=== PATIENT | female | born 1940 | race Caucasian/White ===

== ENCOUNTER 2023-01-30 18:24 | Inpatient (IN) | payer OTHER ==
[2023-01-30] MEDS ORDERED: ACETAMINOPHEN 1000 MG/100 ML BAG IVPB ONE (20:03)
[2023-01-30] MEDS ORDERED: ACETAMINOPHEN INJECTION 100 ML IVPB ONE (20:15)
[2023-01-30 20:20] LABS: BASO % 0.6 % (0-2.0); EOS % 2.1 % (0-4.5); HEMATOCRIT 35.4 % (32.4-45.2); HEMOGLOBIN 11.6 GM/dL (10.7-15.3); LYMPH % 23.2 % (8-40); MCH 29.5 pg (25.7-33.7); MCHC 32.8 g/dl (32.0-36.0); MEAN PLT VOLUME 7.9 fl (7.5-11.1); MONO % 6.1 % (3.8-10.2); PLATELET COUNT 161 10^3/uL (134-434); RBC 3.94 M/mm3 (3.60-5.2); RDW 15.1 % (11.6-15.6); WHITE BLOOD COUNT 7.8 K/mm3 (4.0-10.0)
[2023-01-30 20:42] LABS: CHLORIDE 93 mmol/L (98-107); POTASSIUM 5.3 mmol/L (3.5-5.1); SODIUM 130 mmol/L (136-145)
[2023-01-30 20:43] LABS: CALCIUM 9.2 mg/dL (8.5-10.1); INR 0.95 (0.83-1.09)
[2023-01-30 20:44] LABS: ALBUMIN 3.6 g/dl (3.4-5.0); ANION GAP 7 MMOL/L (8-16); BLOOD UREA NITROGEN 33.4 mg/dL (7-18); CO2 30 mmol/L (21-32)
[2023-01-30 20:54] LABS: ERYTHROCYTE SEDIMENTATION RATE 26 mm/hr (0-30)
[2023-01-30 21:06] LABS: CREATININE 1.5 mg/dL (0.55-1.3); SGOT/AST 17 U/L (15-37); SGPT/ALT 26 U/L (13-61)
[2023-01-30 21:07] LABS: TOT PROT 7.1 g/dl (6.4-8.2)
[2023-01-30 21:08] LABS: BILIRUBIN,TOTAL 0.2 mg/dL (0.2-1)
[2023-01-30 21:09] LABS: ALK PHOS 127 U/L (45-117)
[2023-01-30 21:13] LABS: GLUCOSE,RANDOM 727 mg/dL (74-106)
[2023-01-30] MEDS ORDERED: SODIUM CHLORIDE 0.9% 1000 ML INFUS.BAG IV ONE (21:51)
[2023-01-30] MEDS ORDERED: INSULIN REGULAR HUMAN 100 UNITS/ML *VIAL IVPUSH ONE (21:53)
[2023-01-30] MEDS ORDERED: VANCOMYCIN 1,000 MG in DEXTROSE 5%-WATER - 250 ML IVPB ONE (23:57)
[2023-01-31] MEDS ORDERED: VANCOMYCIN/WATER FOR INJ (PEG) 1,000 MG/200 ML BAG IVPB ONE (01:24)
[2023-01-31] MEDS ORDERED: SODIUM CHLORIDE 1,000 ML IV SCH (05:45)
[2023-01-31] MEDS ORDERED: PIPERACILLIN/TAZOB 2.25 GM 2.25 GM/50 ML BAG IVPB ONE (06:14)
[2023-01-31] MEDS: PIPERACILLIN/TAZOB 2.25 GM 2.25 GM in DEXTROSE 5%-WATER - 50 ML IVPB SCH ×2 (06:51→17:43)
[2023-01-31 07:28] LABS: HEMATOCRIT 33.2 % (32.4-45.2); HEMOGLOBIN 10.8 GM/dL (10.7-15.3); MCH 29.4 pg (25.7-33.7); MCHC 32.6 g/dl (32.0-36.0); MEAN CELL VOLUME 90.4 fl (80-96); MEAN PLT VOLUME 8.5 fl (7.5-11.1); PLATELET COUNT 145 10^3/uL (134-434); RBC 3.67 M/mm3 (3.60-5.2); RDW 14.3 % (11.6-15.6); WHITE BLOOD COUNT 6.2 K/mm3 (4.0-10.0)
[2023-01-31 07:42] LABS: POTASSIUM 4.7 mmol/L (3.5-5.1)
[2023-01-31 07:45] LABS: ALBUMIN 3.1 g/dl (3.4-5.0); CALCIUM 8.8 mg/dL (8.5-10.1)
[2023-01-31 07:48] LABS: CREATININE 1.2 mg/dL (0.55-1.3); PHOSPHOROUS 3.9 mg/dL (2.5-4.9)
[2023-01-31 07:50] LABS: BILIRUBIN,TOTAL 0.5 mg/dL (0.2-1); TOT PROT 6.2 g/dl (6.4-8.2)
[2023-01-31] MEDS ORDERED: CLOPIDOGREL BISULFATE 75 MG TABLET (FP) ONE (08:31)
[2023-01-31] MEDS ORDERED: metoPROLOL SUCCINATE 25 MG TAB.SR.24H (FP) PO ONE (08:31)
[2023-01-31] MEDS ORDERED: CHOLECALCIFEROL (VIT D3) 1,000 UNIT (25 MCG) TABLET ONE (08:31)
[2023-01-31] MEDS ORDERED: INSULIN (NOVOLOG) ASPART 100 UNITS/ML 10ML VIAL ONE ×2 (08:31→17:37)
[2023-01-31] MEDS: INSULIN SLIDING SCALE (NOVOLOG) 1 VIAL SQ SCH ×4 (08:41→22:46)
[2023-01-31] MEDS: metoPROLOL SUCCINATE 25 MG TAB.SR.24H (FP) PO SCH (08:42)
[2023-01-31] MEDS: CHOLECALCIFEROL (VIT D3) 5000 UNITS (125 MCG) CAP PO SCH (08:44)
[2023-01-31] MEDS: CLOPIDOGREL BISULFATE 75 MG TABLET (FP) PO SCH (09:14)
[2023-01-31] MEDS: INSULIN (LEVEMIR) 100 UNITS/ML UNITS SQ SCH (09:14)
[2023-01-31] MEDS: CEFTRIAXONE 1 GM in DEXTROSE 5%-WATER - 50 ML IVPB SCH (17:41)
[2023-01-31] MEDS: RIVAROXABAN 2.5 MG TABLET PO SCH ×2 (17:45→22:46)
[2023-01-31] MEDS: ATORVASTATIN CA 80 MG TABLET (FP) PO SCH (22:46)
[2023-02-01] MEDS ORDERED: PIPERACILLIN/TAZOB 2.25 GM 2.25 GM in DEXTROSE 5%-WATER - 50 ML IVPB SCH (03:00)
[2023-02-01] MEDS: INSULIN (LEVEMIR) 100 UNITS/ML UNITS SQ SCH ×2 (06:42→21:15)
[2023-02-01] MEDS: INSULIN SLIDING SCALE (NOVOLOG) 1 VIAL SQ SCH ×4 (06:42→21:15)
[2023-02-01] MEDS: CEFTRIAXONE 1 GM in DEXTROSE 5%-WATER - 50 ML IVPB SCH (09:02)
[2023-02-01] MEDS: CLOPIDOGREL BISULFATE 75 MG TABLET (FP) PO SCH (09:03)
[2023-02-01] MEDS: RIVAROXABAN 2.5 MG TABLET PO SCH ×2 (09:03→21:14)
[2023-02-01] MEDS: metoPROLOL SUCCINATE 25 MG TAB.SR.24H (FP) PO SCH (09:03)
[2023-02-01] MEDS: CHOLECALCIFEROL (VIT D3) 5000 UNITS (125 MCG) CAP PO SCH (09:06)
[2023-02-01] MEDS ORDERED: INSULIN (NOVOLOG) ASPART 100 UNITS/ML 10ML VIAL ONE ×2 (11:52→21:08)
[2023-02-01 15:07] VITALS: BMI 25.4
[2023-02-01] MEDS: INSULIN (NOVOLOG) ASPART 100 UNITS/ML 10ML VIAL SQ SCH (18:16)
[2023-02-01 20:35] LABS: URINE APPEARANCE CLEAR; URINE BILIRUBIN NEGATIVE (NEGATIVE); URINE COLOR YELLOW; URINE GLUCOSE (UA) 3+ (NEGATIVE); URINE KETONE NEGATIVE (NEGATIVE); URINE LEUK ESTERASE NEGATIVE (NEGATIVE); URINE NITRITE NEGATIVE (NEGATIVE); URINE PROTEIN NEGATIVE (NEGATIVE); URINE UROBILINOGEN 0.2 mg/dL (0.2-1.0)
[2023-02-01] MEDS: ATORVASTATIN CA 80 MG TABLET (FP) PO SCH (21:14)
[2023-02-02 04:49] VITALS: RESP 18
[2023-02-02] MEDS: INSULIN (NOVOLOG) ASPART 100 UNITS/ML 10ML VIAL SQ SCH ×2 (06:06→12:12)
[2023-02-02] MEDS: INSULIN (LEVEMIR) 100 UNITS/ML UNITS SQ SCH (06:06)
[2023-02-02] MEDS: INSULIN SLIDING SCALE (NOVOLOG) 1 VIAL SQ SCH ×3 (06:06→17:10)
[2023-02-02 10:48] LABS: BASO % 0.5 % (0-2.0); EOS % 2.9 % (0-4.5); HEMATOCRIT 33.1 % (32.4-45.2); HEMOGLOBIN 11.2 GM/dL (10.7-15.3); MCHC 33.8 g/dl (32.0-36.0); MEAN CELL VOLUME 88.7 fl (80-96); MEAN PLT VOLUME 8.3 fl (7.5-11.1); MONO % 6.4 % (3.8-10.2); NEUT % 59.2 % (42.8-82.8); PLATELET COUNT 150 10^3/uL (134-434); RBC 3.73 M/mm3 (3.60-5.2); RDW 14.6 % (11.6-15.6); WHITE BLOOD COUNT 5.5 K/mm3 (4.0-10.0)
[2023-02-02] MEDS ORDERED: INSULIN (LEVEMIR) 100 UNITS/ML UNITS SQ SCH (11:05)
[2023-02-02] MEDS ORDERED: INSULIN (NOVOLOG) ASPART 100 UNITS/ML 10ML VIAL SQ SCH (11:05)
[2023-02-02] MEDS: metoPROLOL SUCCINATE 25 MG TAB.SR.24H (FP) PO SCH (11:08)
[2023-02-02] MEDS: CHOLECALCIFEROL (VIT D3) 5000 UNITS (125 MCG) CAP PO SCH (11:08)
[2023-02-02] MEDS: CLOPIDOGREL BISULFATE 75 MG TABLET (FP) PO SCH (11:08)
[2023-02-02] MEDS: RIVAROXABAN 2.5 MG TABLET PO SCH (11:08)
[2023-02-02] MEDS: CEFTRIAXONE 1 GM in DEXTROSE 5%-WATER - 50 ML IVPB SCH (11:08)
[2023-02-02 11:26] LABS: POTASSIUM 4.7 mmol/L (3.5-5.1)
[2023-02-02 11:38] LABS: BLOOD UREA NITROGEN 28.5 mg/dL (7-18)
[2023-02-02 11:41] LABS: PHOSPHOROUS 4.3 mg/dL (2.5-4.9)
[2023-02-02 11:43] LABS: CALCIUM 8.8 mg/dL (8.5-10.1)
[2023-02-02 11:44] LABS: MAGNESIUM 2.1 mg/dL (1.8-2.4)
[2023-02-02 12:19] LABS: BILIRUBIN,TOTAL 0.5 mg/dL (0.2-1); CREATININE 1.1 mg/dL (0.55-1.3); TOT PROT 5.9 g/dl (6.4-8.2)
[2023-02-02 15:19] VITALS: BP 112/60; TEMP 98.2
[2023-02-02 15:24] VITALS: PULSE 57
== END 2023-02-02 19:18 | disposition home or self-care (01) | DRG 638 ==
LOC: JER 18:24 → JERBED 22:32 → J6S 01-31 09:46
PROVIDERS: ADMIT Internal Medicine; ATTEND Internal Medicine
DX: E11.65 Type 2 diabetes mellitus with hyperglycemia (principal); L03.116 Cellulitis of left lower limb; N17.9 Acute kidney failure, unspecified; S81.802A Unspecified open wound, left lower leg, initial encounter; I25.10 Atherosclerotic heart disease of native coronary artery without angina pectoris; E78.5 Hyperlipidemia, unspecified; I11.0 Hypertensive heart disease with heart failure; I50.9 Heart failure, unspecified; Z96.652 Presence of left artificial knee joint; Z95.5 Presence of coronary angioplasty implant and graft
CPT/HCPCS: 36415; 73590-TC-LT-FY; 80053; 81003; 82962; 83036; 83735; 84100; 85025; 85027; 85610; 85651; 85730; 86140; 87081; 93005; 93010; 93971-TC; 99285-25

== ENCOUNTER 2023-05-25 09:13 | Inpatient (IN) | payer OTHER ==
[2023-05-25 09:18] VITALS: BMI 25.4
[2023-05-25] MEDS ORDERED: FLUORESCEIN NA 1 EA STRIP OS ONE (10:11)
[2023-05-25] MEDS ORDERED: TETRACAINE 0.5% HCL 0.6ML DROPPER.BOTTLE OS ONE (10:13)
[2023-05-25] MEDS ORDERED: FLUORESCEIN NA 1 EA STRIP ONE (10:26)
[2023-05-25] MEDS ORDERED: TETRACAINE 0.5% OPHTH SOLN 2 ML BOTTLE ONE (10:26)
[2023-05-25] MEDS ORDERED: ACETAMINOPHEN 1000 MG/100 ML BAG IVPB ONE (10:36)
[2023-05-25] MEDS ORDERED: METOCLOPRAMIDE HCL INJECTION 10 MG/2 ML VIAL IVPUSH ONE (10:41)
[2023-05-25 10:53] LABS: BASO % 0.5 % (0-2.0); EOS % 1.8 % (0-4.5); HEMATOCRIT 33.3 % (32.4-45.2); HEMOGLOBIN 11.2 GM/dL (10.7-15.3); LYMPH % 25.4 % (8-40); MCH 30.6 pg (25.7-33.7); MCHC 33.5 g/dl (32.0-36.0); MEAN CELL VOLUME 91.3 fl (80-96); MEAN PLT VOLUME 7.6 fl (7.5-11.1); MONO % 6.1 % (3.8-10.2); NEUT % 66.2 % (42.8-82.8); PLATELET COUNT 228 10^3/uL (134-434); RBC 3.65 M/mm3 (3.60-5.2); RDW 14.3 % (11.6-15.6)
[2023-05-25 10:59] LABS: INR 0.97 (0.83-1.09); PROTHROMBIN TIME (PATIENT) 11.3 SEC (9.7-13.0)
[2023-05-25 11:11] LABS: POTASSIUM 4.9 mmol/L (3.5-5.1)
[2023-05-25 11:14] LABS: CALCIUM 9.5 mg/dL (8.5-10.1)
[2023-05-25 11:15] LABS: ALBUMIN 3.7 g/dl (3.4-5.0)
[2023-05-25 11:18] LABS: CREATININE 1.2 mg/dL (0.55-1.3)
[2023-05-25 11:19] LABS: BILIRUBIN,TOTAL 0.7 mg/dL (0.2-1)
[2023-05-25] MEDS ORDERED: ACETAMINOPHEN INJECTION 100 ML IVPB ONE (11:19)
[2023-05-25] MEDS ORDERED: METOCLOPRAMIDE HCL INJECTION 10 MG/2 ML VIAL ONE (11:19)
[2023-05-25 11:20] LABS: TOT PROT 7.1 g/dl (6.4-8.2)
[2023-05-25] MEDS ORDERED: INSULIN REGULAR HUMAN 100 UNITS/ML *VIAL SQ ONE (15:19)
[2023-05-25] MEDS ORDERED: INSULIN (NOVOLOG) ASPART 100 UNITS/ML 10ML VIAL SQ ONE ×2 (15:20→15:30)
[2023-05-25] MEDS ORDERED: INSULIN (NOVOLOG) ASPART 100 UNITS/ML 10ML VIAL ONE ×3 (15:27→21:12)
[2023-05-25] MEDS: INSULIN SLIDING SCALE (NOVOLOG) 1 VIAL SQ SCH ×2 (17:26→21:16)
[2023-05-25] MEDS: CEFTRIAXONE 1 GM in DEXTROSE 5%-WATER - 50 ML IVPB SCH (17:26)
[2023-05-25] MEDS: RIVAROXABAN 2.5 MG TABLET PO SCH (21:15)
[2023-05-25] MEDS: ATORVASTATIN CA 80 MG TABLET (FP) PO SCH (21:15)
[2023-05-26] MEDS: ACETAMINOPHEN 325 MG TABLET (FP) PO PRN ×3 (01:00→20:32)
[2023-05-26] MEDS: INSULIN SLIDING SCALE (NOVOLOG) 1 VIAL SQ SCH ×5 (06:52→21:04)
[2023-05-26 07:10] LABS: BASO % 0.4 % (0-2.0); EOS % 2.6 % (0-4.5); HEMATOCRIT 32.8 % (32.4-45.2); LYMPH % 33.3 % (8-40); MCH 30.5 pg (25.7-33.7); MCHC 33.4 g/dl (32.0-36.0); MEAN CELL VOLUME 91.4 fl (80-96); MONO % 6.7 % (3.8-10.2); PLATELET COUNT 218 10^3/uL (134-434); RBC 3.59 M/mm3 (3.60-5.2); RDW 14.4 % (11.6-15.6); WHITE BLOOD COUNT 7.2 K/mm3 (4.0-10.0)
[2023-05-26 07:19] LABS: POTASSIUM 4.6 mmol/L (3.5-5.1)
[2023-05-26 07:22] LABS: ALBUMIN 3.4 g/dl (3.4-5.0); BLOOD UREA NITROGEN 27.2 mg/dL (7-18); CALCIUM 8.9 mg/dL (8.5-10.1)
[2023-05-26 07:25] LABS: CREATININE 1.1 mg/dL (0.55-1.3)
[2023-05-26 07:27] LABS: BILIRUBIN,TOTAL 0.7 mg/dL (0.2-1); CHOLESTEROL 169 mg/dL (50-200); TOT PROT 6.5 g/dl (6.4-8.2)
[2023-05-26 07:28] LABS: LDL CHOLESTEROL (ONLY SJRH) 83 mg/dL (5-100)
[2023-05-26 07:31] LABS: HDL CHOLESTEROL 68 mg/dL (40-60)
[2023-05-26] MEDS: FUROSEMIDE 40 MG TABLET (FP) PO SCH (10:13)
[2023-05-26] MEDS: CEFTRIAXONE 1 GM in DEXTROSE 5%-WATER - 50 ML IVPB SCH (10:13)
[2023-05-26] MEDS: CLOPIDOGREL BISULFATE 75 MG TABLET (FP) PO SCH (10:13)
[2023-05-26] MEDS: RIVAROXABAN 2.5 MG TABLET PO SCH ×3 (10:13→21:04)
[2023-05-26] MEDS: metoPROLOL SUCCINATE 25 MG TAB.SR.24H (FP) PO SCH (10:13)
[2023-05-26] MEDS: ATORVASTATIN CA 80 MG TABLET (FP) PO SCH ×2 (20:32→21:04)
[2023-05-27] MEDS: INSULIN SLIDING SCALE (NOVOLOG) 1 VIAL SQ SCH ×4 (06:26→21:57)
[2023-05-27] MEDS: ACETAMINOPHEN 325 MG TABLET (FP) PO PRN (07:56)
[2023-05-27] MEDS: FUROSEMIDE 40 MG TABLET (FP) PO SCH (09:35)
[2023-05-27] MEDS: CLOPIDOGREL BISULFATE 75 MG TABLET (FP) PO SCH (09:35)
[2023-05-27] MEDS: metoPROLOL SUCCINATE 25 MG TAB.SR.24H (FP) PO SCH (09:35)
[2023-05-27] MEDS: CEFTRIAXONE 1 GM in DEXTROSE 5%-WATER - 50 ML IVPB SCH (09:35)
[2023-05-27] MEDS: RIVAROXABAN 2.5 MG TABLET PO SCH ×2 (09:36→21:39)
[2023-05-27] MEDS: ATORVASTATIN CA 80 MG TABLET (FP) PO SCH (21:38)
[2023-05-27] MEDS: INSULIN (LEVEMIR) 100 UNITS/ML UNITS SQ SCH (21:52)
[2023-05-28] MEDS: metFORMIN HCL 500 MG TABLET (FP) PO SCH ×2 (06:50→18:38)
[2023-05-28] MEDS: INSULIN (LEVEMIR) 100 UNITS/ML UNITS SQ SCH ×2 (06:53→22:15)
[2023-05-28] MEDS: INSULIN SLIDING SCALE (NOVOLOG) 1 VIAL SQ SCH ×4 (06:54→22:16)
[2023-05-28] MEDS: INSULIN (NOVOLOG) ASPART 100 UNITS/ML 10ML VIAL SQ SCH ×3 (06:58→18:06)
[2023-05-28] MEDS ORDERED: INSULIN (LEVEMIR) 100 UNITS/ML UNITS SQ SCH (07:00)
[2023-05-28 07:27] LABS: BASO % 0.6 % (0-2.0); EOS % 3.5 % (0-4.5); HEMATOCRIT 32.7 % (32.4-45.2); HEMOGLOBIN 10.9 GM/dL (10.7-15.3); LYMPH % 29.6 % (8-40); MCH 30.6 pg (25.7-33.7); MCHC 33.3 g/dl (32.0-36.0); MEAN CELL VOLUME 91.7 fl (80-96); MEAN PLT VOLUME 7.9 fl (7.5-11.1); MONO % 7.6 % (3.8-10.2); NEUT % 58.7 % (42.8-82.8); PLATELET COUNT 213 10^3/uL (134-434); RBC 3.57 M/mm3 (3.60-5.2); RDW 14.4 % (11.6-15.6); WHITE BLOOD COUNT 7.2 K/mm3 (4.0-10.0)
[2023-05-28 07:45] LABS: POTASSIUM 4.2 mmol/L (3.5-5.1)
[2023-05-28 07:53] LABS: ALBUMIN 3.5 g/dl (3.4-5.0); BLOOD UREA NITROGEN 29.4 mg/dL (7-18); CALCIUM 8.9 mg/dL (8.5-10.1)
[2023-05-28 07:56] LABS: BILIRUBIN,TOTAL 0.4 mg/dL (0.2-1); TOT PROT 6.6 g/dl (6.4-8.2)
[2023-05-28] MEDS: CEFTRIAXONE 1 GM in DEXTROSE 5%-WATER - 50 ML IVPB SCH (09:35)
[2023-05-28] MEDS: FUROSEMIDE 40 MG TABLET (FP) PO SCH (09:35)
[2023-05-28] MEDS: metoPROLOL SUCCINATE 25 MG TAB.SR.24H (FP) PO SCH (09:35)
[2023-05-28] MEDS: CLOPIDOGREL BISULFATE 75 MG TABLET (FP) PO SCH (09:35)
[2023-05-28] MEDS: RIVAROXABAN 2.5 MG TABLET PO SCH (09:36)
[2023-05-28] MEDS: ATORVASTATIN CA 80 MG TABLET (FP) PO SCH (22:16)
[2023-05-29] MEDS: RIVAROXABAN 2.5 MG TABLET PO SCH ×2 (01:53→09:59)
[2023-05-29] MEDS: INSULIN (LEVEMIR) 100 UNITS/ML UNITS SQ SCH (06:20)
[2023-05-29] MEDS: INSULIN SLIDING SCALE (NOVOLOG) 1 VIAL SQ SCH ×3 (06:21→17:58)
[2023-05-29] MEDS: INSULIN (NOVOLOG) ASPART 100 UNITS/ML 10ML VIAL SQ SCH ×3 (06:21→17:53)
[2023-05-29] MEDS: metFORMIN HCL 500 MG TABLET (FP) PO SCH ×2 (06:22→17:53)
[2023-05-29] MEDS: CEFTRIAXONE 1 GM in DEXTROSE 5%-WATER - 50 ML IVPB SCH (09:59)
[2023-05-29] MEDS: CLOPIDOGREL BISULFATE 75 MG TABLET (FP) PO SCH (10:00)
[2023-05-29] MEDS: FUROSEMIDE 40 MG TABLET (FP) PO SCH (10:00)
[2023-05-29] MEDS: metoPROLOL SUCCINATE 25 MG TAB.SR.24H (FP) PO SCH (10:00)
[2023-05-29] MEDS ORDERED: valACYclovir HCL 500 MG TABLET (FP) PO SCH (10:00)
[2023-05-29] MEDS: ACETAMINOPHEN 325 MG TABLET (FP) PO PRN (10:09)
[2023-05-29] MEDS: BACITRACIN 3.5 GM OPTHALMIC OINT TUBE OS SCH ×3 (10:43→15:45)
[2023-05-29 14:37] VITALS: BP 123/67; PULSE 69; RESP 17; TEMP 98
== END 2023-05-29 18:20 | disposition home or self-care (01) | DRG 125 ==
LOC: JER 09:13 → JERBED 13:32 → J4W 15:57 → OBSVTOIN 16:08
PROVIDERS: ADMIT Family Medicine; ATTEND Family Medicine
DX: H10.89 Other conjunctivitis (principal); R07.89 Other chest pain; I11.0 Hypertensive heart disease with heart failure; I50.9 Heart failure, unspecified; I25.10 Atherosclerotic heart disease of native coronary artery without angina pectoris; H57.12 Ocular pain, left eye; E11.65 Type 2 diabetes mellitus with hyperglycemia; E11.40 Type 2 diabetes mellitus with diabetic neuropathy, unspecified; E78.5 Hyperlipidemia, unspecified; R51.9 Headache, unspecified; Z95.5 Presence of coronary angioplasty implant and graft
CPT/HCPCS: 0241U-QW; 36415; 70450-TC; 70486-TC; 71046-TC-FY; 80048; 80053; 80061; 82962; 83036; 84443; 84484; 85025; 85610; 85651; 85730; 86140; 93005; 93010; 97116-GP; 97161-GP; 99285-25; G0378